=== PATIENT | male | born 1955 | race Caucasian/White ===

== ENCOUNTER 2020-01-18 09:56 | Emergency (ER) | payer OTHER, SELFPAY ==
[2020-01-18 10:05] VITALS: BMI 32.5
--- NOTE | 2020-01-18 10:08 | ED_ITS ---
HPI - Back Pain/Injury General: Chief Complaint: Back Pain/Injury Stated Complaint: LEFT HIP, LEG, AND LOWER BACK PAIN Time Seen by Provider: 01/18/20 10:06 History of Present Illness: HPI Narrative: 64-year-old male comes in complaining of low back pain began after lifting some furniture a month ago he has pain radiating to his buttock down the lateral aspect of his left hip and into his lower leg it comes and goes he was treated with a course of Flexeril and prednisone he had pretty good relief from that for a few days then it recurred again he has been using some [id number] Motrin with moderate relief of symptoms initially started a month ago he denies any hyperesthesias or any other direct blow or injury. He denies any urinary retention or fecal incontinence. MD elicited complaint: back pain Pertinent past history: prior back pain Onset (ago): month(s) Timing: intermittent Severity: moderate Similar Symptoms Previously: Yes Quality: burning and aching Location: lumbar spine Radiation: left upper leg and left leg below the knee Exacerbating factors: movement Relieving factors: immobilization and supine Context: while lifting Associated symptoms: Reports no associated symptoms, myalgias, numbness, tingling/numbness/burning and weakness; Deny change in bowel habits, difficulty walking, dysuria, fatigue, fecal incontinence, nausea, urinary frequency or urinary urgency Treatments prior to arrival: NSAIDS and prescription analgesics (Flexeril and prednisone) Work related injury: No Review of Systems Const: Denies: fatigue ENMT: Denies: throat pain, ear or mastoid pain, nasal discharge or nasal congestion Card: Denies: chest pain, edema, dyspnea on exertion or orthopnea Resp: Denies: dyspnea, productive cough or non-productive cough GI: Denies: nausea, fecal incontinence or change in bowel habits : Denies: dysuria or urinary urgency Skin/Breast: Denies: rash or pruritus Neuro: Denies: difficulty walking PFSH ED PFSH: Social History Smoking and tobacco status: former smoker Physical Exam Const: COMMON NORMALS: no acute distress GENERAL APPEARANCE: cooperative and comfortable ORIENTATION/CONSCIOUSNESS: Yes awake, Yes oriented to person, Yes oriented to place and Yes oriented to time Eye: COMMON NORMALS: Equal, round and reactive pupils present, EOMs intact bilaterally, conjunctivae normal and no scleral icterus CONJUNCTIVA: Yes conjunctivae normal PUPIL: Yes Equal, round and reactive pupils present Neck/C-Spine: COMMON NORMALS: full ROM, no lymphadenopathy, supple and no JVD Lymph: LYMPHATIC: no lymphadenopathy noted and no lymphedema noted Resp: COMMON NORMALS: normal respiratory effort, No retractions, No use of accessory muscles and clear to auscultation bilaterally AUSCULTATION: clear to auscultation bilaterally Cardio: COMMON NORMALS: no JVD, regular rate, regular rhythm and No murmurs present (Cardio) RATE: regular rate RHYTHM: regular rhythm GI: COMMON NORMALS: Soft to palpation and No hepatosplenomegaly present AUSCULTATION: Yes normoactive bowel sounds PALPATION: Yes Soft to palpation, No Tenderness to palpation present (GI), No Guarding due to palpation present (GI) and Yes No hepatosplenomegaly present Extremity: COMMON NORMALS: normal to inspection, capillary refill normal, no clubbing, cyanosis or edema, no calf tenderness and no pedal edema Neuro: SENSORIUM/ORIENTATION: Yes oriented to person, Yes oriented to place and Yes oriented to time DEEP TENDON REFLEXES: Right patellar reflex intensity grade: 1+, Left patellar reflex intensity grade: 1+, Right ankle reflex intensity grade: 1+ and Left ankle reflex intensity grade: 1+ Skin: COMMON NORMALS: no rashes or lesions noted GENERAL SKIN EXAM: no rashes or lesions noted Course Vital Signs: Vital signs: Vital Signs Temperature 98.4 F 01/18/20 10:10 Pulse Rate 65 01/18/20 11:33 Respiratory Rate 17 01/18/20 11:33 Blood Pressure 145/100 01/18/20 11:33 Pulse Oximetry 96 01/18/20 11:33 MDM - Back Pain/Injury MDM Narrative: Medical decision making narrative: Peripheral MRI and neurosurgery consult Discharge Plan Discharge Patient Disposition: Home, Self-Care Clinical Impression: Lumbar radiculopathy Condition: Stable Prescriptions: New hydrocodone-acetaminophen 5-325 mg tablet 1 tab PO Q6H PRN (Reason: pain) Qty: 20 RF: 0 Medrol (Alex) 4 mg tablets,dose pack See Rx Instructions .ROUTE .COMPLEX Qty: 21 RF: 0 tizanidine 4 mg capsule 2 - 4 mg PO Q8H PRN (Reason: muscle spasticity) Qty: 30 RF: 0 No Action Norvasc 5 mg Tablet 5 mg PO DAILY RF: 0 Tylenol Extra Strength 500 mg Tablet 1,000 mg PO Q4H PRN (Reason: Mild Pain (Scale Score 1-4)) RF: 0 Protonix 40 mg Tablet,Delayed Release (Dr/Ec) 40 mg PO DAILY RF: 0 lisinopril 10 mg Tablet 10 mg PO DAILY RF: 0 ibuprofen 200 mg Tablet 200 mg PO Q6H PRN (Reason: Pain, Moderate) RF: 0 metoprolol succinate 50 mg Capsule,Sprinkle,Er 24hr 50 mg PO DAILY RF: 0 Prostate Otc RF: 0 Voltaren-XR RF: 0 Discharge Orders: Discharge Order (Routine); Ordered 01/18/20 Ordered By: Nasim Ko Referrals: Andry Calzada MD [Physician] - (L4 radiculopathy) Discharge Diet: Usual diet Discharge Activity: Limit activity as instructed Discharge Date/Time: 01/18/20 11:34 Coding Level of Care Code ED Design Director for Renae Gold
[2020-01-18 10:10] VITALS: BP 157/108; PULSE 67; RESP 18; TEMP 36.9; O2SAT 97
[2020-01-18 10:24] VITALS: RESP 18
[2020-01-18] MEDS: ketorolac 60 mg/2 mL INJ IM (11:04)
[2020-01-18] MEDS: dexamethasone 10 mg/mL INJ IM (11:04)
[2020-01-18] MEDS: orphenadrine 30 mg/mL Inj 2 mL 60 MG IM (11:05)
--- NOTE | 2020-01-18 11:30 | DCPLANNER ---
Addendum entered by Kayce Burnham 01/19/20 08:07: Patient has [facility] insurance, correctional casework specialist called [facility], informed her that patient was seen in the ED and that patient is needing an MRI scheduled and a follow up appointment with Dr. Calzada. [employer] faxed order for MRI to centralized scheduling, will call for appointment information. November with the [facility] stated that VA has put in an order for an MRI to be done in the community. [facility] [employer] will call centralized scheduling and inform them of this, to be looking for the authorization. [facility] [employer] also called [facility], spoke with Eliza, told her that correctional casework specialist has called the [facility] about follow up appointment, and will fax order to centralized scheduling. Original Note: [employer] was asked to schedule a follow up appointment for patient with Dr. Calzada. [facility] called [facility], spoke with Eliza, gave clinic patients information. [employer] was told that patients appointment information would be printed and given to Luis for review. Clinic will call correctional casework specialist and patient with appointment information.
[2020-01-18 11:33] VITALS: BP 145/100; PULSE 65; RESP 17; O2SAT 96
--- NOTE | 2020-01-25 12:40 | DCPLANNER ---
Patient has a follow up appointment scheduled for Thursday, January 25, 2020 at 8:[address] Mclaughlin office. Clinic will call patient with appointment information.
--- NOTE | 2020-02-15 12:50 | DCPLANNER ---
Patient did attend appointment with Dr. Mclaughlin office.
== END 2020-01-18 11:34 | disposition home or self-care (01) ==
PROVIDERS: Emergency Provider Family Medicine
DX: M54.16 Radiculopathy, lumbar region (principal); Z87.891 Personal history of nicotine dependence
CPT/HCPCS: 12345; 96372; 99282; 99283; J1100; J1885; J2360

== ENCOUNTER 2020-02-01 10:40 | Outpatient (CLI) | payer OTHER, SELFPAY ==
--- NOTE | 2020-02-01 10:55 | MR_ITS ---
WS: [id number] MRI LUMBAR SPINE NONCONTRAST TECHNIQUE: Sagittal T1, T2 and STIR imaging. Axial T1 and T2 imaging. CLINICAL INFORMATION: L4 RADICULOPATHY COMPARISON: None. FINDINGS: Moderate lumbar curve convex left. No acute compression fractures. No high-grade central canal stenos is. Slight anterolisthesis L4 on L5. L1-L2: Slight retrolisthesis L1 on L2. Slight effacement of ventral thecal sac. Narrowing of the suba rticular recess right greater than left. Mild facet arthropathy. Mild foraminal narrowing. L2-L3: Mild disc bulging with a small right subarticular extrusion extending posterior to the L3 vert ebral body. Impingement on the right subarticular recess and traversing right L3 nerve root. Mild tez tral canal stenosis. Mild facet arthropathy. Mild to moderate right foraminal narrowing. Left foramen is patent. Disc material measures 11 x 5 mm with right to left effacement of ventral thecal sac and mild central canal stenosis. L3-L4: Mild annular bulging. Mild central canal stenosis. Narrowing of the subarticular recess. Fora men are patent. Moderate facet arthropathy. L4-L5: Mild annular bulging. Moderate facet arthropathy. Spinal canal and foramen are patent. L5-S1: Advanced left facet arthropathy. Spinal canal and foramen are patent. Visualized pelvic bony structures: Normal. Paravertebral soft tissues: Normal. MR/MR lumbar spine wo con* [id number] IMPRESSION: 1. Mild lumbar curve. No acute compression. No high-grade central canal stenos is. 2. Right subarticular disc extrusion L2-3 extends into the right subarticular recess posterior to the L3 vertebral body. Disc material measures 11 x 4 mm wit h impingement on the traversing right L3 nerve root. Mild central canal stenosi s. Right to left mass effect on the thecal sac. 3. Annular bulging L1-2 with slight narrowing of the right greater than left s ubarticular recess. 4. Small right foraminal protrusion L2-3 with mild to moderate right foraminal narrowing. 5. Moderate to advanced facet arthropathy L3-L5.
== END 2020-02-01 10:41 | disposition home or self-care (01) ==
PROVIDERS: Visit Provider Family Medicine
DX: M54.16 Radiculopathy, lumbar region (principal); M51.26 Other intervertebral disc displacement, lumbar region; M48.061 Spinal stenosis, lumbar region without neurogenic claudication; M47.816 Spondylosis without myelopathy or radiculopathy, lumbar region
CPT/HCPCS: 72148

== ENCOUNTER 2020-02-15 08:20 | Outpatient (CLI) | payer OTHER, SELFPAY ==
--- NOTE | 2020-02-15 08:30 | XR_ITS ---
WS: [id number] LATERAL LUMBAR SPINE: 3 view. Lateral radiographs are performed in upright neutral, flexion and extension to the patient's toleranc e. HISTORY: Low back pain COMPARISON: None available. L4 anterolisthesis by 4.3 mm. During flexion the anterolisthesis increases to 7.9 mm. Extension 5.4 m m. 5 mm retrolisthesis of L1, L2 and L3 on neutral imaging. During flexion the anterolisthesis decreases to 2 mm. Returns to 5 mm during extension. Increase in the lumbar lordosis with facet joint arthritis. XR/XR lumbar spine f/e only [id number] IMPRESSION: 1. Moderate flexion/extension instability at L4. Anterolisthesis of L4 by 4.3 mm on neutral imaging. 2. Retrolisthesis of L1, L2 and L3 by 5 mm. During flexion the anterolisthesis decreases to 2 mm.
== END 2020-02-15 08:21 | disposition home or self-care (01) ==
LOC: RADWPI 08:25
PROVIDERS: Family Provider Emergency Medicine Emergency Medical Services; PCP Emergency Medicine Emergency Medical Services; Visit Provider Licensed Practical Nurse
DX: M53.2X6 Spinal instabilities, lumbar region (principal)
CPT/HCPCS: 72120

== ENCOUNTER → 2020-02-23 08:34 | Outpatient (BNVA) | payer OTHER, SELFPAY | PROVIDERS: Family Provider Emergency Medicine Emergency Medical Services; PCP Emergency Medicine Emergency Medical Services; Referring Provider Specialist; Visit Provider Anesthesiology Pain Medicine | DX: M47.816 Spondylosis without myelopathy or radiculopathy, lumbar region (principal); M51.16 Intervertebral disc disorders with radiculopathy, lumbar region; Z79.891 Long term (current) use of opiate analgesic | CPT/HCPCS: 99204 ==

== ENCOUNTER 2020-03-06 13:57 | Outpatient (CLI) | payer OTHER, SELFPAY ==
--- NOTE | 2020-03-06 15:00 | CT_ITS ---
WS: [id number] CT LUMBAR SPINE TECHNIQUE: Noncontrast CT of the lumbar spine with coronal and sagittal reformatted images. CLINICAL INFORMATION: Low back pain COMPARISON: MRI February 01, 2020 DLP: 2000.[address] scans at [facility] use at least one of these dose optimization techniques: automat ed exposure control; mA and/or kV adjustment per patient size (includes targeted exams where dose is matched to clinical indication); or iterative reconstruction. FINDINGS: Mild lumbar curve convex left. No acute compression fractures. No high-grade central canal stenosis. Slight anterolisthesis L4 on L5. L1-L2: Slight retrolisthesis L1 on L2. Slight effacement of ventral thecal sac. Mild central canal st enosis. Narrowing of the subarticular recess right greater than left. Mild facet arthropathy. Mild fo raminal narrowing. L2-L3: Mild disc bulging with a small right subarticular extrusion extending posterior to the L3 vert ebral body. Impingement on the right subarticular recess and traversing right L3 nerve root. Mild tez tral canal stenosis. Mild facet arthropathy. Mild to moderate right foraminal narrowing. Left foramen is patent. This is better visualized on recent MRI. L3-L4: Mild annular bulging. Mild central canal stenosis. Narrowing of the subarticular recess. Mild right and no significant left foraminal narrowing. Moderate facet arthropathy. L4-L5: Mild annular bulging. Moderate facet arthropathy. Mild right foraminal narrowing. Left foramen is patent. Slight effacement of ventral thecal sac. Slight anterolisthesis L4 on L5. L5-S1: Mild annular bulging. Slight effacement of ventral thecal sac. Spinal canal and foramen are pa tent. Moderate to advanced arthropathy worse in the left. Trace anterolisthesis L5 on S1. CT/CT lumbar spine wo con* [id number] IMPRESSION: 1. Mild lumbar curve. No acute compression. No high-grade central canal stenos is. 2. Slight anterolisthesis L4 on L5 and L5 on S1. 3. Previously described disc extrusion L2-3 extending into the right subarticu lar recess posterior to the L3 vertebral body. This is better visualized on nakul or MRI and appears unchanged. Mild central canal stenosis. 4. Mild to moderate foraminal narrowing unchanged. 5. Moderate to advanced facet arthropathy L3-L5.
== END 2020-03-06 13:58 | disposition home or self-care (01) ==
LOC: RADWPI 14:01
PROVIDERS: Family Provider Emergency Medicine Emergency Medical Services; PCP Emergency Medicine Emergency Medical Services; Visit Provider Licensed Practical Nurse
DX: M51.26 Other intervertebral disc displacement, lumbar region (principal); M48.061 Spinal stenosis, lumbar region without neurogenic claudication; M47.816 Spondylosis without myelopathy or radiculopathy, lumbar region
CPT/HCPCS: 72131

== ENCOUNTER 2020-03-06 15:06 | Outpatient (RCR) | payer OTHER, SELFPAY | END 2020-03-16 23:59 | disposition home or self-care (01) | LOC: SPT 15:06 | PROVIDERS: PCP Emergency Medicine Emergency Medical Services; Referring Provider Licensed Practical Nurse; Visit Provider Licensed Practical Nurse | DX: M48.062 Spinal stenosis, lumbar region with neurogenic claudication (principal); M51.16 Intervertebral disc disorders with radiculopathy, lumbar region | CPT/HCPCS: 97110; 97161 ==

== ENCOUNTER 2020-03-08 | Outpatient (CLI) | payer OTHER, SELFPAY | END 2020-03-08 23:00 | disposition home or self-care (01) | LOC: SPT 04-04 12:22 | PROVIDERS: PCP Emergency Medicine Emergency Medical Services; Referring Provider Licensed Practical Nurse; Visit Provider Licensed Practical Nurse | DX: Z46.89 Encounter for fitting and adjustment of other specified devices (principal); M43.17 Spondylolisthesis, lumbosacral region; M48.062 Spinal stenosis, lumbar region with neurogenic claudication; M25.30 Other instability, unspecified joint | CPT/HCPCS: 97760; L0637 ==

== ENCOUNTER → 2020-03-12 13:52 | Outpatient (BNVA) | payer OTHER, SELFPAY | PROVIDERS: Family Provider Emergency Medicine Emergency Medical Services; PCP Emergency Medicine Emergency Medical Services; Visit Provider Anesthesiology Pain Medicine | DX: M51.16 Intervertebral disc disorders with radiculopathy, lumbar region (principal); M48.062 Spinal stenosis, lumbar region with neurogenic claudication | CPT/HCPCS: 64483; 64484; J1040; J3490 ==

== ENCOUNTER 2020-03-17 06:00 | Outpatient (RCR) | payer OTHER, SELFPAY | END 2020-04-16 23:59 | disposition home or self-care (01) | LOC: SPT 06:00 | PROVIDERS: PCP Emergency Medicine Emergency Medical Services; Referring Provider Licensed Practical Nurse; Visit Provider Licensed Practical Nurse | DX: Z46.89 Encounter for fitting and adjustment of other specified devices (principal); M43.17 Spondylolisthesis, lumbosacral region; M48.062 Spinal stenosis, lumbar region with neurogenic claudication; M25.30 Other instability, unspecified joint | CPT/HCPCS: 97110 ==

== ENCOUNTER → 2020-03-27 13:08 | Outpatient (BNVA) | payer OTHER, SELFPAY | PROVIDERS: Family Provider Emergency Medicine Emergency Medical Services; PCP Emergency Medicine Emergency Medical Services; Visit Provider Anesthesiology Pain Medicine | DX: M48.062 Spinal stenosis, lumbar region with neurogenic claudication (principal); M51.16 Intervertebral disc disorders with radiculopathy, lumbar region | CPT/HCPCS: 64483; 64484; J1040; J3490 ==

== ENCOUNTER → 2020-04-05 07:56 | Outpatient (BNVA) | payer OTHER, SELFPAY | PROVIDERS: PCP Emergency Medicine Emergency Medical Services; Visit Provider Licensed Practical Nurse | DX: M48.062 Spinal stenosis, lumbar region with neurogenic claudication (principal); M51.16 Intervertebral disc disorders with radiculopathy, lumbar region; M43.17 Spondylolisthesis, lumbosacral region; M25.30 Other instability, unspecified joint; M47.816 Spondylosis without myelopathy or radiculopathy, lumbar region | CPT/HCPCS: 99213; 99214 ==

== ENCOUNTER 2021-01-16 13:30 | Outpatient (RCR) | payer OTHER, SELFPAY | END 2021-02-13 23:59 | disposition home or self-care (01) | LOC: SPT 13:30 | PROVIDERS: PCP Emergency Medicine Emergency Medical Services; Referring Provider Orthopaedic Surgery; Visit Provider Orthopaedic Surgery | DX: M16.12 Unilateral primary osteoarthritis, left hip (principal) | CPT/HCPCS: 97110; 97161 ==

== ENCOUNTER 2021-05-01 09:25 | Outpatient (CLI) | payer OTHER, SELFPAY ==
--- NOTE | 2021-05-01 09:36 | XR_ITS ---
WS: [id number] HIP RIGHT TECHNIQUE: 2 views of the right hip CLINICAL INFORMATION: ARTHRITIS COMPARISON: None. FINDINGS: Moderate degenerative arthritis right hip with joint space narrowing. No acute fractures. R ight pubic rami appear normal. XR/XR hip RT 1V wo/w pel [id number] IMPRESSION: Moderate degenerative arthritis right hip. No acute fractures. Tonnis classification: grade 2: small cysts in femoral head/acetabulum or moder ate joint space narrowing or moderate loss of head sphericity
== END 2021-05-01 09:26 | disposition home or self-care (01) ==
PROVIDERS: PCP Emergency Medicine Emergency Medical Services; Visit Provider Chiropractor
DX: M16.11 Unilateral primary osteoarthritis, right hip
CPT/HCPCS: 73501

== ENCOUNTER → 2022-03-07 10:22 | Outpatient (BNVA) | payer OTHER, SELFPAY | PROVIDERS: PCP Emergency Medicine Emergency Medical Services; Visit Provider Surgery | DX: K59.00 Constipation, unspecified (principal); K57.90 Diverticulosis of intestine, part unspecified, without perforation or abscess without bleeding | CPT/HCPCS: 99203 ==

== ENCOUNTER 2022-03-14 08:01 | Outpatient (CLI) | payer OTHER, SELFPAY | END 2022-03-14 08:02 | disposition home or self-care (01) | LOC: RAD 08:21 | PROVIDERS: PCP Emergency Medicine Emergency Medical Services; Visit Provider Nurse Practitioner Family | DX: N20.9 Urinary calculus, unspecified (principal); R30.0 Dysuria; R31.9 Hematuria, unspecified; R93.89 Abnormal findings on diagnostic imaging of other specified body structures | CPT/HCPCS: 51741; 51798; 74018; 81003; 87086; 88112; 99203 ==

== ENCOUNTER 2022-03-20 09:05 | Outpatient (CLI) | payer OTHER, SELFPAY ==
--- NOTE | 2022-03-20 09:00 | CT_ITS ---
WS: [id number] CT ABDOMEN PELVIS TECHNIQUE: Noncontrast CT of the abdomen and contrast-enhanced CT of the abdomen and pelvis with vanessa nal and sagittal reformatted images. CLINICAL INFORMATION: ABNORMAL FINDINGS. COMPARISON: February 26, 2022 DLP: 4079.[address] scans at [facility] use at least one of these dose optimization techniques: automated e xposure control; mA and/or kV adjustment per patient size (includes targeted exams where dose is matc hed to clinical indication); or iterative reconstruction. FINDINGS: Diffuse fatty infiltration liver. Normal portal vein and splenic vein. Normal GE junction. Normal spl een. Fatty atrophy of the pancreas. Lung bases are well aerated. Normal caliber abdominal aorta. Celiac and SMA are patent. Prominent per iaortic, aortocaval, and retroperitoneal lymphadenopathy similar to the prior CT. This extends to the aortic bifurcation. Retrocrural lymphadenopathy in the upper abdomen. Bilateral iliac and pelvic lym phadenopathy. Adrenal glands are normal. Bilateral normal renal parenchymal enhancement. LEFT peripelvic renal cyst s. No obstructing renal or ureteral calculi. Normal ureteral excretion on the delayed imaging. Diffuse irregular bladder wall thickening with enhancement. This is worse along the dorsal caudal asp ect of the bladder. Intraluminal filling defect in the dorsal caudal aspect of the bladder with nodul ar thickening suspicious for bladder carcinoma. Intraluminal bladder filling defect measuring 10 mm i n the dependent dorsal inferior bladder. Lobulation or diverticulum at the RIGHT UVJ insertion. This narrows the RIGHT distal ureter at the UVJ insertion best seen on coronal imaging. Images are degrade d in the pelvis due to LEFT BITA. Bilateral iliac lymphadenopathy. Induration about the bladder suspicious for microvascular invasion. Bladder wall thickening measures up to 16 mm. Pelvic and inguinal lymphadenopathy. Mild prostate enla rgement measuring 4.7 CM. Diffuse thickening of the seminal vesicles. Grade 1 anterolisthesis L4 on L5. CT/CT abdomen pelvis wo/w [id number] IMPRESSION: 1. Eccentric nodular bladder wall thickening involving the dorsal caudal RIGHT aspect of the bladder compatible with carcinoma. This measures up to 16 mm wit h surrounding induration suspicious for microvascular invasion. 2. Diffuse irregular bladder wall thickening along the dorsal caudate aspect o f the bladder with exophytic nodularity or diverticulum at the RIGHT UVJ insert ion with narrowing of the RIGHT distal ureter. Normal ureteral emptying. 3. Intraluminal nodular thickening along the dorsal caudal aspect of the bladd er measuring 10 mm. 4. There is diffuse retrocrural, periaortic, retroperitoneal, aortic caval, il iac, and pelvic lymphadenopathy. 5. Normal excretion on the delayed images bilaterally. LEFT peripelvic renal c ysts. 6. LEFT BITA degrades images in the pelvis.
[2022-03-20 09:31] LABS: Blood Urea Nitrogen 18 mg/dL (8-23); Glomerular Filtration Rate 84.7 mL/min (90-130)
[2022-03-20] MEDS: iohexol 350 mg/mL 100 mL Btl IV (09:42)
== END 2022-03-20 09:06 | disposition home or self-care (01) ==
LOC: RAD 09:06
PROVIDERS: Urology; PCP Emergency Medicine Emergency Medical Services; Visit Provider Nurse Practitioner Family
DX: R93.89 Abnormal findings on diagnostic imaging of other specified body structures (principal); R59.0 Localized enlarged lymph nodes; Z96.642 Presence of left artificial hip joint; Q61.02 Congenital multiple renal cysts; C67.9 Malignant neoplasm of bladder, unspecified; R30.0 Dysuria; N32.89 Other specified disorders of bladder; M47.816 Spondylosis without myelopathy or radiculopathy, lumbar region; N28.89 Other specified disorders of kidney and ureter
CPT/HCPCS: 52000; 74178; 81003; 82565; 84520; 99215

== ENCOUNTER 2022-03-24 08:49 | Observation (INO) | payer OTHER, MEDICARE, SELFPAY ==
[2022-03-21 12:07] VITALS: BMI 31.8
[2022-03-24] VITALS (14 sets, daily range): BP systolic 108–145; BP diastolic 67–89; PULSE 55–86; RESP 16–18; TEMP 35.7–36.6; O2SAT 93–99
--- NOTE | 2022-03-24 | SCC_ITS ---
Procedure done: 1. Cystoscopy, right retrograde ureteropyelogram, right ureteroscopy 2. Transurethral resection of bladder tumor, large 16.6 seconds of fluoroscopic guidance, for a cumulative dose of 6.29 mGy, was provided to Dr. Khan by the radiology department. C-arm images of the pelvis were saved for the patient's permanent record. [facility]
--- NOTE | 2022-03-24 05:58 | XR_ITS ---
WS: [id number] XR chest 2V* [id number] REASON FOR EXAM: Newly diagnosed bladder cancer FINDINGS: The chest is essentially unchanged compared to 11/25/2015. There is moderate tortuosity thoracic aorta without aneurysmal dilatation. The heart size is normal. Calcified granulomatous disease is present both hemithoraces. No lung mass or significant pulmonary nodule. No acute pulmonary parenchymal or pleural abnormality. XR/XR chest 2V* [id number] IMPRESSION: No acute chest abnormality.
--- NOTE | 2022-03-24 05:58 | SC_ITS ---
WS: [id number] C-arm FL for Urology REASON FOR EXAM: Possible right ureteral involvement with bladder cancer FINDINGS: Retrograde injection of contrast in the proximal right ureter demonstrates irregular narrowing of the distal most right ureter with mild proximal dilatation. Presumed Hutch diverticulum at the ureterovesical junction is filled on delayed image. SC/C-arm FL for Urology IMPRESSION: Retrograde right ureterogram demonstrates irregular narrowing of the distal mos t right ureter compatible with neoplastic involvement as suggested on the previ ous CT scan. Hutch diverticulum as above.
--- NOTE | 2022-03-24 05:58 | ECG_ITS ---
[facility] Test Date: 2022-03-24 Pat Name: Mary Cash Department: Room: 264 Gender: Male Collector: : 1955 Requested By: Johnnie Khan Order Number: [id number] Moe MD: Juan Pablo Lemon M.D. Measurements Intervals Thornton Rate: 60 P: 36 MS: 177 QRS: 38 QRSD: 90 T: 48 QT: 459 QTc: 461 Interpretive Statements SINUS RHYTHM Compared to ECG 11/25/2015 06:28:01 No significant changes Electronically Signed On 03-25-2022 0:54:12 CDT by Juan Pablo Lemon M.D. [id number]
--- NOTE | 2022-03-24 06:09 | P.HPUD_ITS ---
Surgery/Procedure H&P Update DATE OF PROCEDURE: March 24, 2022 DATE H&P PERFORMED: 03/20/22 H&P UPDATE INFORMATION: I have reviewed H&P completed within last 30 days, I have examined patient prior to procedure, No changes to prior documentation and H&P is in [facility] EMR on date indicated CHANGES TO PREVIOUS DOCUMENTATION: We discussed retrograde and ureteroscopy possibly for valuation of the right distal ureter in addition to the TURBT. He was comfortable with that. No other changes. PREOP DIAGNOSIS: Bladder mass PLANNED PROCEDURE: Operation Date: 03/24/22 07:00 Proposed Procedures s cystoscopy transurethral resection bladder tumor possible retrograde ureteroscopy 355[address] [facility] 26 74008,C67.9,N28.89(Not Applicable) - Johnnie Khan MD p Cystoscopy(Not Applicable) - Johnnie Khan MD
[2022-03-24] MEDS: sodium chloride 0.9% 1,000 ML 30 ML IV (06:32)
[2022-03-24 06:35] LABS: Basophils # 0.1 10^3/uL (0.0-0.1); Basophils % 0.8 %; Eosinophils # 0.1 10^3/uL (0.0-0.8); Eosinophils % 1.8 %; Hematocrit 41.2 % (42.0-52.0); Hemoglobin 14.1 g/dL (11.7-16.6); Lymphocytes # 2.1 10^3/uL (0.8-4.8); Lymphocytes % 29.1 %; Mean Corpuscular HGB Conc 34.2 g/dL (30.0-36.0); Mean Corpuscular Hemoglobin 30.4 pg (28.0-34.0); Mean Corpuscular Volume 88.8 fl (80-94); Mean Platelet Volume 8.9 fL (7.4-10.4); Monocytes # 0.6 10^3/uL (0.2-0.9); Monocytes % 8.7 %; Neutrophils # 4.37 10^3/uL (1.8-7.7); Neutrophils % 59.3 %; Nucleated Red Blood Cells % 0 %; Platelet Count 260 10^3/cmm (130-400); Red Blood Count 4.64 10^6/uL (4.1-5.3); Red Cell Distribution Width 13.2 % (12.1-15.1); White Blood Count 7.4 10^3/uL (4.0-10.0)
--- NOTE | 2022-03-24 06:40 | ANES.PREANE2 ---
Pre-Anesthetic Assessment Height/Weight: Height 1.83 m Weight 106.594 kg Temp Pulse Resp BP Pulse Ox O2 Del Method 97.9 F 67 16 137/85 96 03/24/22 06:21 03/24/22 06:21 03/24/22 06:21 03/24/22 06:21 03/24/22 06:21 03/24/22 06:21 Preop Diagnosis: Bladder mass Operation Date: 03/24/22 07:00 Proposed Procedures s cystoscopy transurethral resection bladder tumor possible retrograde ureteroscopy 97690 modifier 26 59059,C67.9,N28.89(Not Applicable) - Johnnie Khan MD p Cystoscopy(Not Applicable) - Johnnie Khan MD Familial anesthetic complications: Woke up violent Was Beta Jose taken within 24 hours: Yes Was Clonidine taken within 24 hours: N/A Social No alcohol and No tobacco Exam alert, oriented x 3, clear to auscultation bilaterally and regular rate & rhythm Airway Mallampati: Class II Dentition: partials Pulmonary None reported CV/HEM Hypertension None reported Hepatic None reported GI Gastroesophageal Reflux Disease Metabolic None reported Musc/skel None reported Neuropsych None reported Anesthetic Plan ASA status: 3 Anesthesia: General Risk of > 500 ml blood loss (7ml/kg in children): No Medications/Allergies Home Medications Medication Instructions Recorded Confirmed Last Taken Type acetaminophen 500 mg tablet 1,000 mg PO Q4H PRN Mild Pain 01/18/20 03/24/22 03/23/22 History (Tylenol Extra Strength) (Scale Score 1-4) amlodipine 5 mg tablet (Norvasc) 5 mg PO DAILY 01/18/20 03/24/22 03/24/22 History lisinopril 10 mg tablet 10 mg PO DAILY 01/18/20 03/24/22 03/23/22 History metoprolol succinate 50 mg capsule 50 mg PO DAILY 01/18/20 03/24/22 03/23/22 History sprinkle, ext. release 24 hr pantoprazole 40 mg tablet,delayed 40 mg PO DAILY 01/18/20 03/24/22 03/23/22 History release (Protonix) triamcinolone acetonide 0.1 % 1 applic topical BID #80 grams 08/26/21 03/24/22 02/22/22 Rx topical ointment aspirin 81 mg tablet 81 mg PO DAILY 03/07/22 03/24/22 03/14/22 History bisacodyl 5 mg tablet,delayed 5 mg PO DAILY PRN Constipation 03/07/22 03/24/22 03/22/22 History release phenazopyridine 100 mg tablet 100 mg PO ONCE 03/07/22 03/24/22 03/17/22 History (Pyridium) apple cider vinegar 600 mg capsule 600 mg PO DAILY 03/14/22 03/24/22 03/23/22 History cholecalciferol (vitamin D3) 125 125 mcg PO DAILY 03/14/22 03/24/22 03/23/22 History mcg (5,000 unit) capsule doxycycline hyclate 100 mg capsule 100 mg PO BID #30 caps 03/14/22 03/24/22 03/23/22 Rx Allergies Allergy/AdvReac Type Severity Reaction Status Date / Time Penicillins Allergy ALGY-Rash Verified 03/20/22 10:02 Current Medications Generic Name Dose Route Start Last Admin Trade Name Freq PRN Reason Stop Dose Admin Sodium Chloride 1,000 mls @ 30 mls/hr 03/24/22 06:00 03/24/22 06:32 Sodium Chloride 0.9% IV 03/25/22 05:59 30 mls/hr .Q24H PEGGY Administration PFSH Anesthesia Medical History (Updated 03/20/22 @ 10:45 by Johnnie Khan MD) Bladder cancer Constipation Diverticulosis Diverticulosis Hypertension Instability of joint Intervertebral disc disorder with radiculopathy of lumbar region 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 Jon Calzada: C6-C7 ACDFF Hx of colonoscopy 10 yrs ago Previous back surgery Family History Father , UNKNOWN No problems noted. Mother , AT 76 Heart disease Other Family history non-contributory Social History Smoking and tobacco status: former smoker Alcohol intake: current Alcohol intake frequency: holidays/special occasions only Alcohol type: beer Marital status: Current occupational status: retired History of recent travel: No Data Anesthesia : 03/24/22 06:26 03/24/22 06:26 Short CBC 03/24/22 Range/Units 06:26 WBC 7.4 (4.0-10.0) 10^3/uL Hgb 14.1 (11.7-16.6) g/dL Hct 41.2 L (42.0-52.0) % MCV 88.8 (80-94) fl Plt Count 260 (130-400) 10^3/cmm Neut % (Auto) 59.3 % Neut # (Auto) 4.37 (1.8-7.7) 10^3/uL Cardiac Studies: No Data to Display
[2022-03-24] MEDS: levofloxacin-dextrose 5 % 500 MG/100 ML PREMIX 100 MG IV (07:12)
--- NOTE | 2022-03-24 07:13 | P.OP_ITS ---
Operative Report Date of procedure: March 24, 2022 Pre-op diagnosis: 1. Newly diagnosed bladder cancer, appears high-grade and muscle invasive Post-op diagnosis: 1. Large multifocal bladder cancer involving right posterior wall, right lateral wall, right bladder diverticulum, right ureteral orifice 2. 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 Cystoscopy, right retrograde ureteropyelogram, right ureteroscopy 2. Transurethral resection of bladder tumor, large Implants: Nath catheter Specimens removed/disposition: Bladder tumor chips Pathology: Bladder tumor chips: 1. Right trigone 2. Right lateral wall 3. Right trigone, ureteral orifice, edge of diverticulum 4. Right diverticular tumors Surgeon: Bill Anesthesia: General Estimated blood loss: Minimal Findings: Multiple sites of involvement. Most worrisome site was incised and diverticulum with what appeared to be a soft tissue mass extending from the bladder wall and involving the diverticulum. The right ureteral orifice was right at the edge of the diverticulum and had a papillary tumor just on top of it. It was completely resected with no fulguration of the ureteral orifice itself The very distal aspect of the ureter had some papillary tumor involvement for approximately 1 cm. Condition: stable Disposition: PACU Brief History: Patient is a 66-year-old white male recently presenting with gross hematuria, dysuria, passage of tissue . A noncontrasted CT [facility] demonstrated what appeared to be soft tissue density in the right distal ureter and bladder wall and a follow-up contrasted CT scan confirmed this to be suspicious for bladder mass either involving the right distal ureter or extravesical disease. Cystoscopy confirmed what appeared to be high-grade muscle invasive TCCA with significant distortion of the right trigone architecture. Admitted for TURBT and if possible right retrograde ureteropyelogram possible ureteroscopy Procedure: After routine preoperative evaluation examination and obtaining of informed consent he was taken to the operating suite on 03/24/2022 where general anesthesia was administered without difficulty after appropriate timeout performed, SCDs confirmed to be functioning, preoperative antibiotics administered, beta-rubina protocol confirmed. Prepped and draped in usual sterile fashion in dorsolithotomy position paying careful attention to avoiding pressure points. 21 Cambodian cystoscope with 30 degree lens was introduced into the urethra meatus and advanced into the bladder under videoscopy. Bladder was systematically examined with 30 and 70 degree lenses. See findings above. 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 It appeared that the ureteral orifice on the right was actually at the edge of the diverticulum but this was not completely clear. Intravenous blue dye was given which on delayed excretion confirmed its location at that spot. The divert iculum had what appeared to be nodular tumor involvement on the anterior cephalad aspect. This extended to the edge of the diverticulum. There was a papillary tumor with dystrophic calcification in the area of the right trigone. There were multiple areas of what appear to be more well differentiated tumor on the right lateral wall and right lateral wall more distally above the diverticulum. The Hutch diverticulum on the left appear to be uninvolved. The urethra was then calibrated with Rew sounds and easily accommodated 30 Cambodian. A well-lubricated 25 Cambodian continuous-flow resectoscope sheath with visual obturator was advanced into the bladder without difficulty. The gyrus bipolar system was utilized first with a super loop and the end of the procedure with the button probe for hemostasis. All the landmarks were ascertained. The first tumor resected was the right trigone which was more to the middle of the trigone than actually the ureteral orifice involvement which again was much more laterally displaced at the edge of the diverticulum. The tumor was completely resected down to the wall and muscle fibers were visualized cystoscopically at the base of the resection. More papillary tumor was identified on the right lateral wall more anteriorly and this was also completely resected down into the wall. There were some additional papillary tumors anterior to the diverticulum closer to the bladder neck and these were resected as well. Once blue efflux was noted after intravenous instillation No the right ureteral orifice was confirmed to be at the edge of the diverticulum and there was a papillary tumor involving the orifice. This was resected with a super loop paying careful attention to avoiding any cauterization of the ureteral lumen. There appeared to be some papillary involvement at the most distal aspect of the resection. Efflux was noted. An 8 Cambodian cone-tip catheter was intubated into the right ureteral orifice for RIGHT RETROGRADE URETEROPYELOGRAM demonstrating some narrowing of the distal ureter with some mild dilation of the ureter more proximal to that point. No obvious filling defects were identified. At this point a 7 Cambodian offset semirigid ureteroscope was advanced into the bladder under videoscopy. The scope was positioned just above the right ureteral orifice. A flexible tip guidewire was easily advanced several inches up the orifice and the scope was manipulated into the ureter approximately 2 inches. At that point the ureter was dilated and the mucosa appeared to be normal. The wire was removed. The scope was slowly backed out of the ureter and there was some mild narrowing that was consistent with what was seen on the retrograde but without any obvious tumor and just at the most distal aspect of the ureter there were some what appeared to be well differentiated papillary changes involving 1 cm or less of that aspect to the orifice. Attention was then directed inside the diverticulum. There were areas of both papillary and what appeared to be more solid tumor involvement. Several loop swipes were made through the more solid lesions on anterior cephalad portion of the diverticulum allowing good sampling and what appeared to be more solid tissue beneath those swipes. Careful inspection revealed this to be more nodular mass extending out into the bladder through the os of the diverticulum. There were also papillary lesions. The papillary lesions were fulgurated with the button probe. Again careful attention was paid to avoiding any strain to the area of the orifice. These more invasive appearing areas involving the diverticulum were well away from the orifice. The areas sampled were all collected and sent separately and identified as such. Multiple small areas of what appear to be well differentiated papillary tumors were fulgurated along the right anterior bladder wall and posterior floor while away from the trigone. On final inspection, hemostasis was confirmed to be good. The orifices bilaterally were effluxing. There were no residual specimens in the bladder and then the bladder was drained with a 22 Cambodian three-way Nath catheter with 30 cc placed in the balloon. He tolerated the procedure well without complications and was awakened in the operating room and returned to the recovery room in stable condition. PLANS: 1. Admit to observation status with Nath catheter and CBI. 2. Anticipate will be able to remove the Nath catheter tomorrow and discharge. 3. We will make a outpatient consultation with oncology and consultation with [facility] for consideration of more extirpative surgical options 4. It appears that the soft tissue density seen on the CT scan is the nodular mass noted on the more anterior cephalad portion of the right diverticulum. I anticipate that he will require a cystectomy. The most distal aspect of the right ureteral involvement should be easily managed with routine cystectomy ureteral division.
[2022-03-24 07:26] LABS: Alanine Aminotransferase 17 U/L (0-41); Albumin Level 3.9 g/dL (3.5-5.2); Alkaline Phosphatase 74 IU/L (40-130); Anion Gap 17.6 (5-19); Aspartate Amino Transferase 15 U/L (0-40); Blood Urea Nitrogen 19 mg/dL (8-23); Calcium 9.3 mg/dL (8.5-10.5); Carbon Dioxide 22 mmol/L (22-29); Chloride 107 mmol/L (98-107); Globulin 3.3 g/dL (1.3-4.6); Glomerular Filtration Rate 84.7 mL/min (90-130); Glucose 110 mg/dL (65-115); Osmolality Calculated 297 mOsm/kg (285-295); Potassium 4.6 mmol/L (3.5-5.1); Sodium 142 mmol/L (136-145); Total Bilirubin 0.7 mg/dL (0.15-1.2); Total Protein 7.2 g/dL (6.6-8.7)
[2022-03-24] MEDS: lidocaine 2% Urojet 20 mL TOPICAL (07:46)
[2022-03-24] MEDS: iohexol 300 mg/mL 50 mL Btl (OR ONLY) XX (07:47)
[2022-03-24] MEDS: lisinopril 10 mg Tablet PO (10:35)
[2022-03-24] MEDS: acetaminophen 500 mg Tablet 1000 MG PO ×2 (10:35→15:55)
[2022-03-24] MEDS: D5-NS 0.45% + KCL 20 mEq 20 MEQ/1,000 ML BAG 100 MEQ IV ×2 (10:36→20:33)
[2022-03-24] MEDS: ketorolac 30 mg/mL INJ 15 MG IVP ×2 (12:12→18:35)
--- NOTE | 2022-03-24 13:46 | ANE.PACU2 ---
Inpatient post-anesthesia follow up: Airway intact: Yes Vital signs: Temperature 96.2 F Pulse Rate 62 Respiratory Rate 17 Blood Pressure 124/71 Pulse Oximetry 96 Oxygen Delivery Me thod Room Air Oxygen Flow Rate 6 Fraction of Inspir ed Oxygen Hydration adequate: Yes Nausea and vomiting: No Pain level: 2 Mental status: Baseline
[2022-03-24] MEDS: HYDROcodone-acetaminophen 5-325 mg Tablet 1 TAB PO (13:59)
[2022-03-24] MEDS: docusate sodium 100 mg Capsule PO (18:35)
[2022-03-24] MEDS: doxycycline 100 mg Tablet PO (18:35)
--- NOTE | 2022-03-24 19:24 | PC.NURSE ---
SHIFT SUMMARY: PT HAS HAD A DECENT DAY. PT HAS HAD SOME COMPLAINTS OF MODERATE PAIN. URINE WAS CLEAR FOR HALF OF THE SHIFT AND THEN TURNED GREEN. DR FLORES NOTIFIED OF THIS CHANGE. NO NEW ORDERS THIS WAS AN EXPECTED FINDING. THIS NURSE IRRIGATED PTS BLADDER TWICE DUE TO COMPLAINTS OF PAIN. ONE TINY CLOT WAS REMOVED. TOTAL AMOUNT OF CBI GIVEN BY THIS NURSE WAS 3000 ML. TOTAL OUTPUT WAS 6950 ML. PT IS RESTING COMFORTABLY IN BED. PRN PAIN MEDICATION WAS GIVEN AN HOUR AGO AND HEAT PACKS HAVE BEEN APPLIED TO HELP ASSIST WITH PAIN. PTS IS AT BEDSIDE. BEDSIDE REPORT WITH DEJON SYLVESTER. ALL QUESTIONS ANSWERED.
[2022-03-25] MEDS: pantoprazole DR 40 mg Tablet PO ×2 (00:26→08:31)
[2022-03-25 00:35] VITALS: BP 132/69; PULSE 79; RESP 16; TEMP 36.7; O2SAT 93
[2022-03-25 04:50] VITALS: BP 108/67; PULSE 74; RESP 17; TEMP 36.9; O2SAT 95
[2022-03-25] MEDS: D5-NS 0.45% + KCL 20 mEq 20 MEQ/1,000 ML BAG 100 MEQ IV (05:47)
--- NOTE | 2022-03-25 07:30 | PM.DCS ---
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 Admitted for TURBT. Also planned likelihood of retrograde pyelogram possible ureteroscopy to assess the right distal ureter which was unclear on his preoperative CT scans as to its involvement. Preoperative labs and chest x-ray showed no gross abnormality Hospital Course Hospital Course Admitted on the day of the procedure which went well. Please see operative report for full details. 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 There was a solid nodular component on the anterior cephalad portion of the diverticulum that was sampled but not completely resected. It appeared that this was in continuity with the nodular density extending into the bladder wall which would go along with the very thickened intramural process demonstrated on the CT scan. He had multiple areas of what also appeared to be high-grade tumor in the bladder itself as well as some sporadic low-grade appearing papillary changes. Of note the right ureteral orifice was right at the neck of the diverticulum and had a tumor over it. The orifice was resected but not fulgurated. There appeared to be some papillary changes in the visible component of the resected orifice and the retrograde pyelogram was performed that showed some narrowing in ureteroscopy confirmed some mild low-grade appearing papillary changes in the very distal 1 cm roughly of the ureter. No stent was left indwelling. General impression postoperatively was that he had a large volume high-grade muscle invasive disease likely with extravesical extension through the diverticulum. This would also fit the picture on the CT scan. Postoperatively he did well. He did have some renal colicky symptoms that responded very well to Toradol on the night of the procedure. This was not unexpected given the intentional lack of stenting of the ureter post resection. CBI was weaned off and his urine remained clear. On postop day #1 he received 40 mg of mitomycin instilled into the bladder. PROCEDURE: Mitomycin instillation 40 mg of mitomycin and 40 cc saline was instilled slowly in the bladder without difficulty. Catheter was plugged patient held the chemotherapy for approximately 1 hour. Drained and then Nath catheter was removed. Tolerated very well. Nath catheter was removed post mitomycin instillation and appropriate holding timeframe. 6 bottle void was conducted. He voided spontaneously with clearing of urine and good emptying as confirmed via PVR bladder scans. His CT scan was reviewed final interpretation unfortunately did show that he had multiple levels of lymph node involvement. We had talked about potentially curative intervention with neoadjuvant chemotherapy followed by extirpative therapy but with this level of lymph node involvement of his clear that extirpative therapy would provide no significant benefit. Follow through consultation with oncology was sent. We had a long detailed conversation about the disheartening findings of lymphadenopathy and how changed our original expectations of pursuit of potentially curative therapies. Physical Exam Narrative: Alert and oriented no acute distress Respiratory: Good air movement, no wheezes. No laboring Genitourinary: Urine is clear with slight blood tinge Extremities: Good range of motion Mental status: Urinary Catheter Management: 3-way Urethral CBI: Cath Placed During This Visit: yes Urinary Catheter Date of Insertion: 03/24/22 Urinary Catheter Time of Insertion: 08:36 Discharge Data Studies Completed and Pending Completed Studies During Hospitalization Category Date Time Status XR chest 2V* [id number] Routine Exams 03/24/22 05:58 Completed Pending at discharge Category Date Time Status C-arm FL for Urology Routine Exams 03/24/22 05:58 Taken Pathology: Surgical [PTH] Routine Pth 03/24/22 08:55 Received Radiology Impressions Chest X-Ray 03/24/22 05:58 IMPRESSION: No acute chest abnormality. Laboratory Results WBC 7.4 10^3/uL (4.0-10.0) 03/24/22 06:26 RBC 4.64 10^6/uL (4.1-5.3) 03/24/22 06:26 Hgb 14.1 g/dL (11.7-16.6) 03/24/22 06:26 Hct 41.2 % (42.0-52.0) L 03/24/22 06:26 MCV 88.8 fl (80-94) 03/24/22 06:26 MCH 30.4 pg (28.0-34.0) 03/24/22 06:26 MCHC 34.2 g/dL (30.0-36.0) 03/24/22 06:26 RDW 13.2 % (12.1-15.1) 03/24/22 06:26 Plt Count 260 10^3/cmm (130-400) 03/24/22 06:26 MPV 8.9 fL (7.4-10.4) 03/24/22 06:26 Neut % (Auto) 59.3 % 03/24/22 06:26 Lymph % (Auto) 29.1 % 03/24/22 06:26 [place] % (Auto) 8.7 % 03/24/22 06:26 Eos % (Auto) 1.8 % 03/24/22 06:26 Baso % (Auto) 0.8 % 03/24/22 06:26 Neut # (Auto) 4.37 10^3/uL (1.8-7.7) 03/24/22 06:26 Lymph # (Auto) 2.1 10^3/uL (0.8-4.8) 03/24/22 06:26 [place] # (Auto) 0.6 10^3/uL (0.2-0.9) 03/24/22 06:26 Eos # (Auto) 0.1 10^3/uL (0.0-0.8) 03/24/22 06:26 Baso # (Auto) 0.1 10^3/uL (0.0-0.1) 03/24/22 06:26 Nucleated RBC % (auto) 0 % 03/24/22 06:26 Nucleated RBCs # 0.0 /100WBC 03/24/22 06:26 Sodium 142 mmol/L (136-145) 03/24/22 06:26 Potassium 4.6 mmol/L (3.5-5.1) 03/24/22 06:26 Chloride 107 mmol/L (98-107) 03/24/22 06:26 Carbon Dioxide 22 mmol/L (22-29) 03/24/22 06:26 Anion Gap 17.6 (5-19) 03/24/22 06:26 BUN 19 mg/dL (8-23) 03/24/22 06:26 Creatinine 0.9 mg/dL (0.7-1.2) 03/24/22 06:26 GFR Calculation 84.7 mL/min (90-130) L 03/24/22 06:26 Glucose 110 mg/dL (65-115) 03/24/22 06:26 Calculated Osmolality 297 mOsm/kg (285-295) H 03/24/22 06:26 Calcium 9.3 mg/dL (8.5-10.5) 03/24/22 06:26 Total Bilirubin 0.7 mg/dL (0.15-1.2) 03/24/22 06:26 AST 15 U/L (0-40) 03/24/22 06:26 ALT 17 U/L (0-41) 03/24/22 06:26 Alkaline Phosphatase 74 IU/L (40-130) 03/24/22 06:26 Total Protein 7.2 g/dL (6.6-8.7) 03/24/22 06:26 Albumin 3.9 g/dL (3.5-5.2) 03/24/22 06:26 Globulin 3.3 g/dL (1.3-4.6) 03/24/22 06:26 Procedures Performed 1. Cystoscopy, transurethral resection of bladder tumor large 2. Right retrograde ureteropyelogram 3. Right ureteroscopy Vitals Last Vital Signs Temp 98.4 F 03/25/22 04:50 Pulse 74 03/25/22 04:50 Resp 17 03/25/22 04:50 BP 108/67 03/25/22 04:50 Pulse Ox 95 03/25/22 04:50 O2 Del Method 03/25/22 04:50 O2 Flow Rate 6 03/24/22 08:58 Discharge Plan Discharge Patient Disposition: Home Condition: Stable Prescriptions: Continued apple cider vinegar 600 mg capsule 600 mg PO DAILY cholecalciferol (vitamin D3) 125 mcg (5,000 unit) capsule 125 mcg PO DAILY doxycycline hyclate 100 mg capsule 100 mg PO BID Qty: 30 0RF bisacodyl 5 mg tablet,delayed release (DR/EC) 5 mg PO DAILY PRN (Reason: Constipation) phenazopyridine [Pyridium] 100 mg tablet 100 mg PO ONCE triamcinolone acetonide 0.1 % ointment 1 applic topical BID Qty: 80 2RF Rx Instructions: Apply to affected areas on the legs and trunk prn no more than 3 wks/mo amlodipine [Norvasc] 5 mg Tablet 5 mg PO DAILY acetaminophen [Tylenol Extra Strength] 500 mg Tablet 1,000 mg PO Q4H PRN (Reason: Mild Pain (Scale Score 1-4)) pantoprazole [Protonix] 40 mg Tablet,Delayed Release (Dr/Ec) 40 mg PO DAILY lisinopril 10 mg Tablet 10 mg PO DAILY metoprolol succinate 50 mg Capsule,Sprinkle,Er 24hr 50 mg PO DAILY Held aspirin 81 mg tablet 81 mg PO DAILY Hold Instructions: Resume on 04/01/22. Discharge Orders: Discharge Order (Routine); Ordered 03/25/22 Ordered By: Johnnie Khan Referrals: Johnnie Khan MD [Physician] - (Please call Bill's office to schedule a follow up appointment. TBA) Discharge Diet: Usual diet Discharge Activity: Limit activity as instructed Patient Instructions: Cystoscopy, Transurethral Resection of Bladder Tumors (GEN), Opioid Safety Discharge Attestations Time Spent in Discharge Care*: greater than 30 min Quality Metrics Clinical Quality Measures [ No reported AMI, CVA or VTE this stay] Coding Level of Care Code Acute Chg FW DC note
--- NOTE | 2022-03-25 07:45 | PC.NURSE ---
cbi disconnected at 0715 by nathan
[2022-03-25 08:17] VITALS: BP 146/68; PULSE 72; RESP 16; TEMP 36.5; O2SAT 93
[2022-03-25] MEDS: docusate sodium 100 mg Capsule PO (08:30)
[2022-03-25] MEDS: doxycycline 100 mg Tablet PO (08:30)
[2022-03-25] MEDS: metoprolol succinate ER (24 HR) 50 mg Tablet PO (08:31)
[2022-03-25] MEDS: amlodipine 5 mg Tablet PO (08:31)
[2022-03-25] MEDS: lisinopril 10 mg Tablet PO (08:31)
[2022-03-25 12:21] VITALS: BP 128/72; PULSE 55; RESP 16; TEMP 36.6; O2SAT 96
[2022-03-25 12:47] VITALS: BP 128/72; PULSE 55; RESP 16; TEMP 36.6; O2SAT 96
== END 2022-03-25 12:47 | disposition home or self-care (01) ==
LOC: MEDSURG 08:50
PROVIDERS: Admitting Provider Urology; PCP Emergency Medicine Emergency Medical Services; Visit Provider Urology
PROC: 0TBB8ZZ Excision of Bladder, Via Natural or Artificial Opening Endoscopic (ICD-10-PCS; CPT 52240; principal; 2022-03-24 07:00)
PROC: 0TJB8ZZ Inspection of Bladder, Via Natural or Artificial Opening Endoscopic (ICD-10-PCS; CPT 52000; 2022-03-24 07:00)
PROC: 0TJ98ZZ Inspection of Ureter, Via Natural or Artificial Opening Endoscopic (ICD-10-PCS; CPT 52351; 2022-03-24 07:00)
PROC: (CPT 74420; 2022-03-24 07:00)
DX: C67.8 Malignant neoplasm of overlapping sites of bladder (principal); K21.9 Gastro-esophageal reflux disease without esophagitis; I10 Essential (primary) hypertension; Z79.82 Long term (current) use of aspirin; Z87.891 Personal history of nicotine dependence
CPT/HCPCS: 52240; 52351; 36415; 51798; 71046; 76000; 80053; 85025; 88307; 93005; G0378; J1100; J1885; J1940; J1956; J2405; J2704; J3010; J3490; J7030; J9280; Q9968

== ENCOUNTER 2022-03-27 05:41 | Emergency (ER) | payer OTHER, MEDICARE, SELFPAY ==
[2022-03-27 05:44] VITALS: BP 159/98; PULSE 61; RESP 16; TEMP 36.5; O2SAT 98; BMI 31.8
--- NOTE | 2022-03-27 06:05 | PC.NURSE ---
16f simple stern catheter kit used, inserted per protocol, irrigated with 30ml of normal saline, dark nura urine with red blood clots returned, 800cc immediately output, patient reports relief of pressure pain to bladder. tolerated well.
[2022-03-27 06:09] VITALS: BP 136/93; PULSE 70; RESP 19; O2SAT 98
--- NOTE | 2022-03-27 06:09 | W.ED.MALEGU ---
HPI - Male Genitourinary General: Chief complaint: Urogenital-Male Stated complaint: can't pee Time Seen by Provider: 03/27/22 05:53 Source: patient Mode of arrival: ambulatory Limitations: no limitations History of Present Illness: 66-year-old male with a history of bladder cancer states he had a cystoscope done yesterday he has had some hematuria states has not been able to urinate since last night he is having pain over his bladder he feels quite distended he does try to urinate has not been able to. Denies any worsening proving factors rates his pain an 8 out of 10 currently. Denies any fevers. Associated symptoms: Deny dysuria, nausea or vomiting Review of Systems Const: Denies: fever(s), chills, body aches or change in appetite Eyes: Denies: blurry vision or eye discomfort ENMT: Denies: throat pain or dental pain Card: Denies: chest pain Resp: Denies: dyspnea GI: Denies: abdominal pain, nausea, vomiting or diarrhea : Reports: difficulty urinating; Denies: dysuria Musc: Denies: neck pain or back pain Skin/Breast: Denies: rash Neuro: Denies: headache(s) Psych: Denies: depression Dick/Lymph: Denies: easy bruising All/Imm: Denies: urticaria PFSH ED PFSH: Medical History (Updated 03/27/22 @ 06:10 by Gali Llanes MD) Bladder cancer Bladder cancer 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 Jon Calzada: C6-C7 ACDFF Hx of colonoscopy 10 yrs ago Previous back surgery Family History Father , UNKNOWN No problems noted. Mother , AT 76 Heart disease Other Family history non-contributory Social History Smoking and tobacco status: former smoker Alcohol intake: current Alcohol intake frequency: holidays/special occasions only Alcohol type: beer Marital status: Current occupational status: retired History of recent travel: No Physical Exam Const: COMMON NORMALS: no acute distress, patient oriented x3 and healthy appearing HENMT: COMMON NORMALS: normocephalic and atraumatic HEAD & SCALP: normocephalic and atraumatic Eye: COMMON NORMALS: Equal, round and reactive pupils present and EOMs intact bilaterally PUPIL: Yes Equal, round and reactive pupils present Neck/C-Spine: COMMON NORMALS: full ROM and supple Chest: COMMONS NORMALS: normal inspection of the chest and normal palpation of entire chest wall Resp: COMMON NORMALS: normal respiratory effort, No retractions, No use of accessory muscles and clear to auscultation bilaterally AUSCULTATION: clear to auscultation bilaterally Cardio: COMMON NORMALS: regular rate, regular rhythm and No murmurs present (Cardio) RATE: regular rate RHYTHM: regular rhythm GI: COMMON NORMALS: Normal to inspection, nondistended, normoactive bowel sounds present, Soft to palpation, non-tender and no masses PALPATION: Yes Soft to palpation OTHER: Distended bladder with tenderness over bladder Extremity: COMMON NORMALS: normal to inspection and full ROM Neuro: COMMON NORMALS: patient oriented x3, moves all extremities and no focal motor deficits Psych: COMMON NORMALS: mental status grossly normal, Normal thought process present and cooperative THOUGHT PROCESS: Normal thought process present Skin: COMMON NORMALS: no rashes or lesions noted and no wounds GENERAL SKIN EXAM: no rashes or lesions noted Course Vital Signs: Vital signs: Vital Signs Temperature 97.7 F 03/27/22 05:44 Pulse Rate 70 03/27/22 06:09 Respiratory Rate 19 H 03/27/22 06:09 Blood Pressure 136/93 03/27/22 06:09 Pulse Oximetry 98 03/27/22 06:09 MDM - Male Medical Decision Making Patient presents with hematuria patient's bladder was flushed will leave Nath in place to have him follow-up with urology he is to return if worsening. Discharge Plan Discharge Patient Disposition: Home Clinical Impression: Acute retention of urine Condition: Stable Prescriptions: No Action apple cider vinegar 600 mg capsule 600 mg PO DAILY cholecalciferol (vitamin D3) 125 mcg (5,000 unit) capsule 125 mcg PO DAILY doxycycline hyclate 100 mg capsule 100 mg PO BID Qty: 30 0RF bisacodyl 5 mg tablet,delayed release (DR/EC) 5 mg PO DAILY PRN (Reason: Constipation) phenazopyridine [Pyridium] 100 mg tablet 100 mg PO ONCE aspirin 81 mg tablet 81 mg PO DAILY Hold Instructions: Resume on 04/01/22. triamcinolone acetonide 0.1 % ointment 1 applic topical BID Qty: 80 2RF Rx Instructions: Apply to affected areas on the legs and trunk prn no more than 3 wks/mo amlodipine [Norvasc] 5 mg Tablet 5 mg PO DAILY acetaminophen [Tylenol Extra Strength] 500 mg Tablet 1,000 mg PO Q4H PRN (Reason: Mild Pain (Scale Score 1-4)) pantoprazole [Protonix] 40 mg Tablet,Delayed Release (Dr/Ec) 40 mg PO DAILY lisinopril 10 mg Tablet 10 mg PO DAILY metoprolol succinate 50 mg Capsule,Sprinkle,Er 24hr 50 mg PO DAILY Discharge Orders: Discharge ED (Routine); Ordered 03/27/22 Ordered By: Gali Llanes Referrals: Johnnie Khan MD [Physician] - 1-3 days Lee Contreras DO [Primary Care Provider] - Discharge Diet: Advance as tolerated Discharge Activity: Resume usual activity Patient Instructions: Urinary Retention in Men (ED) Coding Level of Care Code ED Cad Application Support Specialist for Renae Fwd Exam Comprehensive
--- NOTE | 2022-03-27 06:09 | PC.NURSE ---
verbal order to hold piv and lab draw per dr pryor at this time.
--- NOTE | 2022-03-27 06:40 | PC.NURSE ---
drainage bag changed to leg bag, patient education on purpose and use given to patient and spouse, both verbalized understanding and performed return demonstration.
[2022-03-27 06:44] VITALS: BP 138/83; O2SAT 100
--- NOTE | 2022-03-27 06:49 | PC.NURSE ---
unable to find charge for stern catheters in [employer] system, added here per facility protocol.
== END 2022-03-27 06:47 | disposition home or self-care (01) ==
PROVIDERS: Emergency Provider Emergency Medicine; PCP Emergency Medicine Emergency Medical Services
DX: R33.9 Retention of urine, unspecified (principal); Z79.82 Long term (current) use of aspirin; Z85.51 Personal history of malignant neoplasm of bladder; I10 Essential (primary) hypertension; Z87.891 Personal history of nicotine dependence
CPT/HCPCS: 99283

== ENCOUNTER → 2022-03-28 08:58 | Outpatient (BNVA) | payer OTHER, SELFPAY | PROVIDERS: PCP Emergency Medicine Emergency Medical Services; Visit Provider Urology | DX: R33.8 Other retention of urine (principal); C67.9 Malignant neoplasm of bladder, unspecified; C77.2 Secondary and unspecified malignant neoplasm of intra-abdominal lymph nodes; K59.00 Constipation, unspecified | CPT/HCPCS: 99214 ==

== ENCOUNTER → 2022-05-26 10:28 | Day surgery (SDC) | payer OTHER, SELFPAY ==
[2022-05-26] MEDS: sodium chloride 0.9% 1,000 ML 999 ML IV (10:53)
[2022-05-26 11:27] VITALS: BP 123/79; PULSE 72; RESP 18; TEMP 36.6; O2SAT 99
== END ==
PROVIDERS: PCP Emergency Medicine Emergency Medical Services; Visit Provider Internal Medicine Hematology & Oncology
DX: C67.9 Malignant neoplasm of bladder, unspecified (principal)
CPT/HCPCS: 96360; J1642; J7030

== ENCOUNTER → 2022-06-04 11:14 | Day surgery (SDC) | payer OTHER, SELFPAY ==
[2022-06-04] MEDS: sodium chloride 0.9% 1,000 ML 999 ML IV (11:40)
[2022-06-04 11:56] VITALS: BP 133/89; PULSE 107; RESP 18; TEMP 36.4; O2SAT 97
== END ==
PROVIDERS: PCP Emergency Medicine Emergency Medical Services; Visit Provider Internal Medicine Hematology & Oncology
DX: C67.9 Malignant neoplasm of bladder, unspecified (principal)
CPT/HCPCS: 96360; J1642; J7030

== ENCOUNTER → 2022-06-18 11:08 | Day surgery (SDC) | payer OTHER, SELFPAY ==
[2022-06-18] MEDS: sodium chloride 0.9% 1,000 ML 999 ML IV (11:20)
[2022-06-18 11:50] VITALS: BP 121/75; PULSE 106; RESP 18; TEMP 36.3; O2SAT 99
== END ==
PROVIDERS: PCP Emergency Medicine Emergency Medical Services; Visit Provider Internal Medicine Hematology & Oncology
DX: C67.9 Malignant neoplasm of bladder, unspecified (principal)
CPT/HCPCS: 96360; J1642; J7030

== ENCOUNTER → 2022-07-02 10:51 | Day surgery (SDC) | payer OTHER, SELFPAY ==
[2022-07-02] MEDS: sodium chloride 0.9% 1,000 ML 999 ML IV (11:07)
[2022-07-02 11:11] VITALS: BP 133/99; PULSE 109; RESP 18; TEMP 36.3; O2SAT 99
== END ==
PROVIDERS: PCP Emergency Medicine Emergency Medical Services; Visit Provider Internal Medicine Hematology & Oncology
DX: C67.9 Malignant neoplasm of bladder, unspecified (principal)
CPT/HCPCS: 96360; J1642; J7030

== ENCOUNTER 2022-08-20 05:42 | Day surgery (SDC) | payer OTHER, SELFPAY ==
[2022-08-15 10:18] VITALS: BMI 31.1
--- NOTE | 2022-08-20 06:05 | PM.HP ---
Providers/Chief Complaint Primary Care Provider: Lee Contreras DO Chief Complaint: Z12.11 History of Present Illness Mary Cash is a 66 year old male here for colonoscopy Medications/Allergies Home Medications Medication Instructions Recorded Confirmed Last Taken Type acetaminophen 500 mg tablet 1,000 mg PO Q4H PRN Mild Pain 01/18/20 08/15/22 08/14/22 History (Tylenol Extra Strength) (Scale Score 1-4) amlodipine 5 mg tablet (Norvasc) 5 mg PO DAILY 01/18/20 08/15/22 08/15/22 History lisinopril 10 mg tablet 10 mg PO DAILY 01/18/20 08/15/22 08/15/22 History metoprolol succinate 50 mg capsule 50 mg PO DAILY 01/18/20 08/15/22 08/13/22 History sprinkle, ext. release 24 hr pantoprazole 40 mg tablet,delayed 40 mg PO DAILY 01/18/20 08/15/22 08/15/22 History release (Protonix) triamcinolone acetonide 0.1 % 1 applic topical BID #80 grams 08/26/21 08/15/22 08/14/22 Rx topical ointment aspirin 81 mg tablet 81 mg PO DAILY 03/07/22 08/15/22 08/15/22 History bisacodyl 5 mg tablet,delayed 10 mg PO DAILY PRN Constipation 03/07/22 08/15/22 08/14/22 History release cholecalciferol (vitamin D3) 125 125 mcg PO DAILY 03/14/22 08/15/22 08/15/22 History mcg (5,000 unit) capsule Colace 250 mg PO DAILY PRN Constipation 08/15/22 08/15/22 Unknown History garlic 600 mg capsule 600 mg PO DAILY 08/15/22 08/15/22 08/15/22 History multivitamin 1 tab PO DAILY 08/15/22 08/15/22 08/15/22 History Allergies Allergy/AdvReac Type Severity Reaction Status Date / Time Penicillins Allergy ALGY-Rash Verified 08/15/22 10:10 PFSH Acute PFSH: Medical History Bladder cancer 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 Jon Calzada: C6-C7 ACDFF Hx of colonoscopy 10 yrs ago Previous back surgery Family History Father , UNKNOWN No problems noted. 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
[2022-08-20 06:06] VITALS: BP 147/86; PULSE 82; RESP 16; TEMP 37.1; O2SAT 97
[2022-08-20] MEDS: sodium chloride 0.9% 1,000 ML 30 ML IV (06:33)
--- NOTE | 2022-08-20 06:48 | ANES.PREANE2 ---
Pre-Anesthetic Assessment Height/Weight: Height 1.83 m Weight 104.326 kg Temp Pulse Resp BP Pulse Ox O2 Del Method 98.7 F 82 16 147/86 97 08/20/22 06:06 08/20/22 06:06 08/20/22 06:06 08/20/22 06:06 08/20/22 06:06 08/20/22 06:06 Preop Diagnosis: Bladder mass Operation Date: 08/20/22 07:00 Proposed Procedures p Colonoscopy 48056(Not Applicable) - Matt Hearn DO Familial anesthetic complications: none Was Beta Jose taken within 24 hours: Yes Was Clonidine taken within 24 hours: N/A Last intake: Intake Last Liquid Date 08/19/22 Last Liquid Time 22:00 Last Solid Date 08/18/22 Last Solid Time 21:00 Last Intake: 22:00 Social No alcohol and No tobacco Exam alert, oriented x 3, clear to auscultation bilaterally and regular rate & rhythm Airway Submandibular: within normal limits Cervical ROM: within normal limits Mallampati: Class II Dentition: partials (upper) Pulmonary None reported CV/HEM Arrythmia (PAC) and Hypertension Bladder CA Hepatic None reported GI Gastroesophageal Reflux Disease (controlled) Metabolic None reported Musc/skel Lower Back Pain and Osteoarthritis/DJD Neuropsych None reported Anesthetic Plan ASA status: 3 Anesthesia: MAC Risk of > 500 ml blood loss (7ml/kg in children): No Medications/Allergies Home Medications Medication Instructions Recorded Confirmed Last Taken Type acetaminophen 500 mg tablet 1,000 mg PO Q4H PRN Mild Pain 01/18/20 08/15/22 08/14/22 History (Tylenol Extra Strength) (Scale Score 1-4) amlodipine 5 mg tablet (Norvasc) 5 mg PO DAILY 01/18/20 08/20/22 08/19/22 History lisinopril 10 mg tablet 10 mg PO DAILY 01/18/20 08/20/22 08/19/22 History metoprolol succinate 50 mg capsule 50 mg PO DAILY 01/18/20 08/20/22 08/19/22 History sprinkle, ext. release 24 hr pantoprazole 40 mg tablet,delayed 40 mg PO DAILY 01/18/20 08/20/22 08/19/22 History release (Protonix) triamcinolone acetonide 0.1 % 1 applic topical BID #80 grams 08/26/21 08/20/22 08/19/22 Rx topical ointment aspirin 81 mg tablet 81 mg PO DAILY 03/07/22 08/20/22 08/17/22 History bisacodyl 5 mg tablet,delayed 10 mg PO DAILY PRN Constipation 03/07/22 08/20/22 08/19/22 History release cholecalciferol (vitamin D3) 125 125 mcg PO DAILY 03/14/22 08/20/22 08/19/22 History mcg (5,000 unit) capsule Colace 250 mg PO DAILY PRN Constipation 08/15/22 08/20/22 08/19/22 History garlic 600 mg capsule 600 mg PO DAILY 08/15/22 08/20/22 08/19/22 History multivitamin 1 tab PO DAILY 08/15/22 08/20/22 08/19/22 History Allergies Allergy/AdvReac Type Severity Reaction Status Date / Time Penicillins Allergy ALGY-Rash Verified 08/15/22 10:10 Current Medications Generic Name Dose Route Start Last Admin Trade Name Freq PRN Reason Stop Dose Admin Sodium Chloride 1,000 mls @ 30 mls/hr 08/20/22 06:15 08/20/22 06:33 Sodium Chloride 0.9% IV 08/21/22 06:14 30 mls/hr .Q24H PEGGY Administration PFSH Anesthesia Medical History Bladder cancer 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 Jon Calzada: C6-C7 ACDFF Hx of colonoscopy 10 yrs ago Previous back surgery Family History Father , UNKNOWN No problems noted. Mother , AT 76 Heart disease Other Family history non-contributory Social History Smoking and tobacco status: former smoker Alcohol intake: current Alcohol intake frequency: holidays/special occasions only Alcohol type: beer Marital status: Current occupational status: retired History of recent travel: No Data Anesthesia Cardiac Studies: No Data to Display
[2022-08-20 07:24] VITALS: BP 109/74; PULSE 74; RESP 16; TEMP 36.3; O2SAT 96
[2022-08-20 07:36] VITALS: BP 124/88; PULSE 73; RESP 16; O2SAT 97
--- NOTE | 2022-08-20 17:35 | ANE.PACU2 ---
Inpatient post-anesthesia follow up: Airway intact: Yes Vital signs: Temperature 97.4 F Pulse Rate 73 Respiratory Rate 16 Blood Pressure 124/88 Pulse Oximetry 97 Oxygen Delivery Me thod Room Air Oxygen Flow Rate 2 Fraction of Inspir ed Oxygen Hydration adequate: Yes Nausea and vomiting: No Pain level: 1 Mental status: Baseline
== END 2022-08-20 08:00 | disposition home or self-care (01) ==
PROVIDERS: Family Provider Internal Medicine Hematology & Oncology; PCP Emergency Medicine Emergency Medical Services; Visit Provider Surgery
PROC: 0DJD8ZZ Inspection of Lower Intestinal Tract, Via Natural or Artificial Opening Endoscopic (ICD-10-PCS; CPT 45378; principal; 2022-08-20 07:00)
DX: Z12.11 Encounter for screening for malignant neoplasm of colon (principal); K52.9 Noninfective gastroenteritis and colitis, unspecified; Z85.3 Personal history of malignant neoplasm of breast; I10 Essential (primary) hypertension; Z87.891 Personal history of nicotine dependence; K21.9 Gastro-esophageal reflux disease without esophagitis
CPT/HCPCS: 45380; 88305; J2704; J7030

== ENCOUNTER → 2022-08-28 15:37 | Outpatient (BNVA) | payer OTHER, SELFPAY | PROVIDERS: Family Provider Internal Medicine Hematology & Oncology; PCP Emergency Medicine Emergency Medical Services; Visit Provider Surgery | DX: K50.90 Crohn's disease, unspecified, without complications (principal) | CPT/HCPCS: 99212 ==